=== PATIENT | female | born 1955 | race Caucasian/White ===

== ENCOUNTER 2017-07-22 19:25 | Emergency (ER) | payer OTHER, SELFPAY ==
[2017-07-22 19:27] VITALS: BP 129/87; PULSE 67; RESP 15; TEMP 36.3; BMI 23.7
--- NOTE | 2017-07-22 20:45 | RAD_ITS ---
STUDY: X-RAY - RIGHT WRIST REASON FOR EXAM: Female, 62 years old. Right wrist injury TECHNIQUE: 3 view(s) of the wrist were obtained. COMPARISON: None. FINDINGS: Transverse impacted fracture distal radius with slight dorsal angulation. Visualized Ulna intact. Normal radiocarpal articulation. Normal distal radioulnar articulation. Normal carpal bones. Normal carpal articulations. Normal carpometacarpal articulation of the thumb. Normal second through fifth carpometacarpal articulations. Normal visualized metacarpal bones. The soft tissue structures are unremarkable. RAD/Wrist min 3 Views IMPRESSION: Impacted fracture distal radius Electronically Signed: Rosalio Gomez MD at 21:01 EDT , Service support ,
[2017-07-22] MEDS: HYDROcodone Bitartrate/Apap 5/325 Tablet PO (21:34)
--- NOTE | 2017-07-22 21:45 | ED.VISSUMM ---
- ER Visit Summary Date of Service: 07/22/17 Chief Complaint: [Injury right wrist] History of Present Illness: The patient is a 62 F [presents to the emergency department with injury to the right wrist prior to arrival in the emergency department about 3 hours ago. Patient states that she was hiking and she slipped and fell injuring her right wrist. Patient is right-hand dominant. She denies any other injuries.] Physical Examination: [Right wrist-patient has soft tissue swelling and obvious deformity. Patient neurovascular intact distally. No open areas noted. No pain at the elbow.] Test Results: [X-rays of the right wrist showed a impacted distal radius fracture] Emergency Department Course and Treatment: Patient was placed in a volar splint.] Patient was given [place] for pain Treatment Plan: [Case was discussed with Dr. Frank Coe who asked that I splint the patient and have patient follow-up with his office.] Disposition: [Discharged home in stable condition] Impression: [Right distal radius fracture] This note was generated with [employer] dictation software. It may contain incorrect words, spelling, and punctuation that were not noted in review of the chart prior to signing ED Disposition - Plan for ED Patient: Chief Complaint: Upper Extremity Injury Referrals: Brock Reyes DO [Primary Care Provider] -
--- NOTE | 2017-07-22 21:46 | ED.DEP ---
ED Disposition - Plan for ED Patient: Chief Complaint: Upper Extremity Injury Instructions: ED Fx Colles Wrist No Redu Requ Prescriptions: Hydrocodone/Acetaminophen [[place] 5-325 Tablet] 1 - 2 ea PO 4X/DAY PRN PRN 5 Days #20 tab PRN Reason: Pain Referrals: Brock Reyes DO [Primary Care Provider] - Rito Coe MD [STAFF PHYSICIAN] - 3-5 Days
[2017-07-22 21:53] VITALS: PULSE 72; RESP 14; O2SAT 98
== END 2017-07-22 21:54 | disposition home or self-care (01) ==
PROVIDERS: Emergency Provider Emergency Medicine; Family Provider Student in an Organized Health Care Education/Training Program; PCP Student in an Organized Health Care Education/Training Program
DX: S52.501A Unspecified fracture of the lower end of right radius, initial encounter for closed fracture (principal); W01.0XXA Fall on same level from slipping, tripping and stumbling without subsequent striking against object, initial encounter; Y93.01 Activity, walking, marching and hiking; Y92.9 Unspecified place or not applicable; Y99.8 Other external cause status
CPT/HCPCS: 73110; 99283

== ENCOUNTER 2019-04-25 10:00 | Outpatient (RCR) | payer OTHER, SELFPAY ==
--- NOTE | 2019-03-27 11:44 | HP.PTEVAL_ITS ---
Patient's Visit Information BRUNO JIANG is a 63 year old F referred to Physical Therapy by JENNY BAPTISTE with a diagnosis of Left Partial TKR. Date of Evaluation: 03/27/19 Physical Therapist: Sarah Daly DPT - Visit Plan Frequency: 2-3x /Week Duration: 4 Weeks Plan: Left Partial Knee Replacement 03/07/19 Focus on LE strength and functional mobility. HEP 03/27/2019: Quad set, SLR with quad set, TKE, prone quad stretch - Subjective Findings: Mar 07, 2019 Left Partial Knee Replacement at [facility]. Had home health therapy and is now ready for outpatient. Patient reports pain at worst: 5/10 Tylenol in evenings. Pain is located in the whole knee- No radiating pain. Describes as dull and achy- poking sometimes. Sometimes feels like something is pulling inside. Uses a single axillary crutch in the community but at home does not use an AD. Eases: elevation and ice. Agg: sitting for too long, standing to long or being active. Can't remember what her measurements from are. Very active- use to jog, exercise classes, yoga, rossy- strength classes 4x a week. Would like to get back to doing all of those things. Sleep: distrurbed- rolls over and it wakes her up. No N/T in the LE- skin feels weird around incision. Went back to the Mar 23- he was happy with everything- x- rays will be in 4 weeks. PMHx: none Meds: Asprin, Celebrex, Tylenol - Objective Posture: FH, RS- can correct with verbal cues. Gait: slightly deviated with axillary crutch- decreased stance on left LE. SLS: 30 sec without LOB. HR/TR: able. Palpation: tender along lateral joint line. ROM: 0-130 degrees with tightness at end rang flexion. Strenth: Ankle: 5/5, Knee: 4+/5, Hip: 4+/5 throughout. Flex: HS: mild, Gastroc: mild. Incision: healing well no s/s of infection. Stairs: non recip with 1 HR - Goals Goal 1:: Patient will be I with HEP and progression Goal Time Frame: 4-6 Weeks Goal 2:: Patient will ambulate >800 feet normalized gait with no AD Goal Time Frame: 4-6 Weeks Goal 3:: Patient will asc/desc 8 recip with 1 HR and good control Goal Time Frame: 4-6 Weeks Goal 4:: Patient will demo 5/5 strength in LE Goal Time Frame: 4-6 Weeks Goal 5:: Patient will return to all normal ADL's/Recreational activities with no pain Goal Time Frame: 4-6 Weeks - Rehabilitation Potential Physical Therapy Diagnosis: Patient presents with hypomobility s/p Left partial knee replacement- she has decreased strength and muscular endurance leading to decreased participation in ADL's and recreational activities. Rehabilitation Potential: Good - Anticipated Interventions Patient/Client Instruction: Educate patient on: Benefits of Fitness Program Therapeutic Exercise to Include: Strength training, Endurance training, Balance training, Body mechanics, Postural training, Flexibilty training, Gait and locomotor training, Dynamic Lumbar Stabilization For the Purpose of:: To improve muscle performance and motor function TENS: Yes Other electric stimulation: Yes Cryotherapy (ice pack, ice massage): Yes Thermo therapy (hot pack): No For the Purpose of:: To decrease pain Thank you for the opportunity to evaluate your patient. For Medicare and Medicare HMO plans, please review the plan of care and approve it. It will need to be FAXED BACK to us at [phone] for Medicare purposes. For Medicare only, by signing this I certify the plan of care. Please let me know if there are questions or concerns regarding this plan of care. Physician Signature: Date:
--- NOTE | 2019-04-25 10:39 | HP.PTDCSUM ---
HP - PT D/C Summary It has been my pleasure to treat BRUNO JIANG under orders from JENNY BAPTISTE, for the diagnosis of Left Partial TKR for a total of 10 visit(s). Discharge Date: Please see the following information for a summary of their discharge status. - Subjective Subjective: Patient feels that the knee at its worst is a 1/10. She wants to be able to walk more and the swelling bothers her. She is back to exercise classes but she is modifying. The pain is not localized its all around the knee. She feels that she is 70% back to normal. She has a hard time squatting down- she does not feel confident with the knee yet. - Pain L knee Pain Intensity (Out of 10): 0 - Overall Improvement % Improvement: 70 - Objective Objective/Function: Posture: FH, RS- can correct with verbal cues. Gait: slightly antalgic. SLS: 30 sec without LOB. HR/TR: able. Palpation: tender along lateral joint line. ROM: 0-130 degrees. Strenth: Ankle: 5/5, Knee: 5/5, Hip: 4+/5 throughout. Flex: HS: mild, Gastroc: mild. Incision: healing well no s/s of infection. Stairs: recip with no HR - Goals Goal 1:: Patient will be I with HEP and progression Goal 2:: Patient will ambulate >800 feet normalized gait with no AD Goal 3:: Patient will asc/desc 8 recip with 1 HR and good control Goal 4:: Patient will demo 5/5 strength in LE Goal 5:: Patient will return to all normal ADL's/Recreational activities with no pain - Plan Plan: Discharge to I HEP - D/C Information If there are questions or concerns regarding this patient's physical therapy, please feel free to call me at [phone]. Thank you for the referral of this patient. Sincerely, Sarah Daly DPT
== END 2019-04-25 19:00 | disposition home or self-care (01) ==
LOC: PT 10:00
PROVIDERS: Family Provider Student in an Organized Health Care Education/Training Program; PCP Student in an Organized Health Care Education/Training Program
DX: Z96.652 Presence of left artificial knee joint (principal)
CPT/HCPCS: 97110; 97161; 97164